=== PATIENT | female | born 2000 | race Caucasian/White ===

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

== ENCOUNTER 2018-03-13 16:20 | Emergency (ER) | payer OTHER ==
[~2018-03-13] VITALS: Ht 167.6 cm; Wt 62.3 kg
[~2018-03-13 16:20] MED LIST: MOTR200T44 PO
[2018-03-13 16:21] VITALS: BP 114/55
[2018-03-13] MEDS ORDERED: MAGICMW MT (17:01)
== END 2018-03-13 17:11 | disposition home or self-care (01) ==
LOC: M ED 16:20
DX: J02.9 Acute pharyngitis, unspecified (principal)